=== PATIENT | male | born 1940 | race Caucasian/White ===

== ENCOUNTER 2016-08-22 21:49 | Inpatient (IN) | payer MEDICARE ==
--- NOTE | ~2016-08-22 | CO ---
Unit #: [id number] #: [id number] Patient: CHETAN KWOK [id number] [address] [facility]. [place], [place] [address] [id number] I MR#: [id number] NAME: CHETAN KWOK ROOM: 335 Age: 75 Sex: M Admission Date: 08/22/2016 : 1940 Attending Physician: Marty Caldwell M.D. Primary Care Physician: Edgard Quinn M.D. Consultation Date: 08/23/2016 CONSULTATION REPORT REASON FOR CONSULTATION Severe hyponatremia with an admission sodium of 107. HISTORY OF PRESENT ILLNESS Mr. Kwok is a pleasant 75-year-old white male alcoholic, who presented to the emergency room with several complaints including falls with complain of hitting his head and an abrasion to his left hand. The patient tells me that he has had progressive weakness and several falls at home and tells me that he has hit "rock bottom." Also for several weeks, he has had issues with nausea, vomiting, diarrhea, and poor p.o. intake. All of these issues persuaded him to come to the emergency room. I do see some records from [facility] in 2010. He was treated there for depression and alcohol dependence and was released from that program due to noncompliance with followup. He also has a history of heart disease and is on blood pressure medicine. 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 He is also a smoker. He denies any hematemesis. No bright red blood per rectum or melena. He is having some abdominal pain. No fevers or chills. PAST MEDICAL HISTORY Significant for alcoholism with alcohol dependence, coronary artery disease with angioplasty, hemorrhoids, hypertension, hyperlipidemia, and depression. PAST SURGICAL HISTORY He has had a CABG. He has had hemorrhoid surgery and a tonsillectomy. HOME MEDICATIONS As follows; Protonix 40 mg a day, Altace 1.25 mg daily, Lipitor 10 mg a day, baby aspirin daily, amlodipine 10 mg daily, and trazodone 300 mg at bedtime. ALLERGIES He has quoted allergies to Neosporin. FAMILY HISTORY There is a family history of alcoholism, as he says several uncles have alcohol dependence. No family history of renal issues. SOCIAL HISTORY The patient tells me he drinks 8 to 12 beers a day, sometimes more. He does smoke. He denies any drug use. He says he is retired from the [employer] and is a graduate of [employer] with an MICHELLE. Unit #: [id number] #: [id number] Patient: CHETAN KWOK REVIEW OF SYSTEMS A complete 12-point review of systems was completed with the above findings. In addition, he does suffer from headaches at times. He denies any active dizziness. No nosebleed, sore throat, or earache. No chest pain or palpitations. No cough or hemoptysis. No dysuria or hematuria. No swelling. He does have some bruising from his falls. No gross bleeding issues. He thinks he has lost weight with his recent vomiting and diarrhea. No intolerance to heat or cold. Unless otherwise indicated, the review of systems was negative. PHYSICAL EXAMINATION VITAL SIGNS: The patient is afebrile, pulse 97, respiratory rate 20, blood pressure 110/64. I's and O's are negative by 160. GENERAL: This is a 75-year-old male, who is alert, talkative, disheveled in appearance, in no acute distress. HEENT: Head is atraumatic and normocephalic. Eyes show pink conjunctivae. No nasal drainage or nosebleed. Oropharynx is dry. NECK: Shows no rigidity, no JVD. HEART: Regular rate and rhythm with no murmur or rub appreciated. LUNGS: Clear with no wheezing or rhonchi. Breathing is nonlabored. ABDOMEN: Soft with mild diffuse tenderness to palpation. There are active bowel sounds. No rebound or guarding. EXTREMITIES: No lower extremity cyanosis or pitting edema. SKIN: Dry with some scattered bruising. Left arm and wrist are wrapped. MUSCULOSKELETAL: No CVA tenderness to palpation. LYMPHATIC: There is no neck or cervical lymphadenopathy. PSYCHIATRIC: Mood and affect appear normal. DIAGNOSTIC STUDIES LABORATORY RESULTS: Admission CBC was unremarkable. Admission liver function test showed an elevated AST and ALT at 74 and 89 respectively. Admission sodium 107, potassium 3.8, chloride 77, bicarb 18, glucose 100, BUN 7, creatinine 0.6. Alcohol level was in the toxic range at 181. Follow up a little after midnight showed an improved sodium to 123. Urinalysis did show some urobilinogen and 0 to 2 red blood cells per high-powered field. I did have 2+ blood, but only 0 to 2 red blood cells per high-powered field. Urine sodium was less than 10. Urine osmolality was 72. Follow up sodium level at 03:30 was 123 and at 5:30 was 130. Overall sodium level has corrected from 107 to 130 at this time. ASSESSMENT AND PLAN 1. Hyponatremia. This appears to be secondary to beer potomania as well as a more acute component with nausea, vomiting, and diarrhea. I do not have recent sodium level, but I suspect this may be mostly an acute issue with his recent gastrointestinal illness on top of a chronic illness from his beer potomania. Slow correction is warranted and I have acutely discussed this issue with the nurse and we immediately increased his D5W to 200 mL an hour. We will be checking a sodium level every 4 hours and I will have those called to me. Of note, the patient's IV does not appear to be working well as it beat several times when I was in the room seeing him and he says that it did not work well all night, so I suspect he has not been getting his D5 fluids uninterrupted and the nurse is aware of this issue and says that she will be changing his IV site. In addition a trazodone can cause a SIADH pattern. He did receive this last night, I will be discontinuing this. 2. Hypertension. The patient's blood pressure is on the low side and we will hold his medicines for the time being. 3. Alcoholism. When the patient sober is up, he will need an alcohol Unit #: [id number] #: [id number] Patient: CHETAN KWOK cessation, talk in education. 4. Hepatitis, which is likely alcohol induced. I will be stopping his statin. 5. Depression. We will have to stop his trazodone due to his hyponatremia. I would like to thank Dr. Caldwell for this consult and the opportunity to participate in evaluation and care of Mr. Kwok. Dictated by... Ramez Vizcarra Jr., M.D. NICKIE/antoine TD: 08/23/2016 22:47 JOB #: [id number] CONSULTATION REPORT X Ramez Vizcarra MD X CONSULTATION REPORT
--- NOTE | ~2016-08-22 | HP ---
Unit #: [id number] #: [id number] Patient: CHETAN KWOK [id number] [address] [id number] I MR#: [id number] NAME: CHETAN KWOK ROOM: [facility] Age: 75 Sex: M Admission Date: 08/22/2016 : 1940 Attending Physician: Marty Caldwell M.D. Primary Care Physician: Edgard Quinn M.D. HISTORY AND PHYSICAL HISTORY OF PRESENT ILLNESS The patient is a 75-year-old white male with a history of coronary artery disease, hypertension, hyperlipidemia, major depressive disorder, ETOH and tobacco abuse, multiple falls, and prior rib and hip fractures, who fell on the day of admission. EMS was summoned, and he asked to come to the hospital. He claimed that he was drinking too much but did not want detox. In any case, he apparently had no fractures. He had multiple abrasions which were cleaned. He was found on routine lab work in the ER to have a sodium of 107. He had some abnormal liver functions as would be expected with heavy alcohol use. He did have 2+ blood in his urine but no RBCs suggestive of rhabdomyolysis, and he is admitted for treatment of same. He was given IV fluids overnight, and his sodium went from 107 to 123 to 130. Currently, he has been switched back to D5W because of the rapid rise in his sodium levels. Nephrology has been consulted in the meantime. He has also been placed on DT precautions. Patient has also recently had problems with nausea, vomiting, and diarrhea which is likely secondary to alcohol abuse but this leaves to be seen. In any case, he is admitted for further evaluation and therapy. PAST MEDICAL HISTORY 1. Patient is a poor historian. 2. Coronary artery disease. 3. Hypertension. 4. Headaches. 5. Alcohol abuse. 6. Tobacco abuse. 7. Multiple falls. 8. Hyperlipidemia. PAST SURGICAL HISTORY 1. Coronary artery bypass grafting. 2. Angioplasty. 3. Hemorrhoidectomy. 4. Tonsillectomy. 5. Hip replacement. ALLERGIES NEOMYCIN, BACITRACIN, POLYMYXIN, MEDICATIONS PRIOR TO ADMISSION 1. Protonix 40 mg p.o. daily. 2. Altace 1.25 mg daily. Unit #: [id number] #: [id number] Patient: CHETAN KWOK 3. Lipitor 10 mg daily. 4. Aspirin 81 mg daily. 5. Amlodipine 10 mg daily. 6. Desyrel 300 mg p.o. at bedtime. SOCIAL HISTORY He lives with his elderly mother for whom he cares. He smokes a half a pack of cigarettes daily and drinks eight beers daily on average. No street drug use. FAMILY HISTORY Noncontributory. PHYSICAL EXAMINATION GENERAL: He is awake, alert, and oriented to person and place. He missed the date and month but got the year right. VITAL SIGNS: Afebrile, pulse 91, respirations 18, blood pressure 146/65, and room air O2 saturation 96%. HEENT: Unremarkable otherwise. NECK: Supple without JVD, bruits, adenopathy, or thyromegaly. CHEST: Diffusely decreased breath sounds but clear to auscultation. HEART: Regular rate and rhythm, without any murmurs, rubs, or gallops. ABDOMEN: Soft, nondistended, and nontender, with positive bowel sounds and no hepatosplenomegaly. EXTREMITIES: No clubbing, cyanosis, or edema. GENITOURINARY/RECTAL: Deferred. NEUROLOGIC: Grossly intact. DIAGNOSTIC STUDIES LABORATORY: CBC normal. AST 77, ALT 89, sodium 107, then 123, then 130, original CO2 was 18 and then corrected itself, and calcium was 7.6. Alcohol level was 181. Urinalysis with 2+ blood but otherwise negative and no RBCs seen. Urine sodium less than 10, urine osmo 72. Amylase and lipase normal. IMAGING: CT scan of the head no active disease. IMPRESSION 1. Hyponatremia. 2. Nausea, vomiting, and diarrhea. 3. Alcohol abuse. 4. Alcoholic hepatitis. 5. Probable rhabdomyolysis. 6. Tobacco use. 7. Multiple falls. 8. Coronary artery disease. 9. History of hypertension. 10. History of hyperlipidemia. PLAN Nephrology has been consulted. His IV fluids have been adjusted as mentioned above. All of his home medications are being held currently except for his Protonix. Sodium levels are being followed. He has been started on DT precautions, multivitamins, folic acid, and thiamine. TSH, B12, and folic acid levels. CPK. Lovenox for DVT prophylaxis. Further evaluation pending results of the above. Dictated by Unit #: [id number] #: [id number] Patient: CHETAN KWOK M.D. WRK/am TD: 08/23/2016 16:29 JOB #: [id number] HISTORY AND PHYSICAL X Jay Starr MD HISTORY AND PHYSICAL
--- NOTE | ~2016-08-22 | CT71 ---
[facility] A Service of [facility] RADIOLOGY TEXT RESULTS PATIENT: CHETAN KWOK LOCATION: [facility] 335-01 : 42 UNIT #: [id number] AGE: [address]: Marty Caldwell MD SEX: M ORDER DR: [id number] [facility] [address] [facility] [place], [place] [address] [id number] I MR#: [id number] #: [id number] NAME: CHETAN KWOK : 1940 SEX: M STUDY DATE/TIME: 08/22/2016 20:11 UNIT: A U ROOM: [facility] STUDY DESCRIPTION: CT Head Wo Contrast Attending Physician: Marty Caldwell M.D. Ordering Physician: Edgard Fajardo M.D. Primary Care Physician: Edgard Quinn M.D. MEDICAL IMAGING REPORT This report is preliminary unless electronic signature is present EXAM CT head without contrast, 08/22/2016 at 20:11 HISTORY 75-year-old male, alcohol intoxication, fell and hit head. Unknown loss of consciousness. Headache today. Previous CABG. COMPARISON Noncontrast CT head, 03/13/[address] exam was performed with one or more of the following radiation dose reduction techniques: automatic exposure control, adjustment of mA and/or kV according to patient size, and iterative reconstruction. FINDINGS No acute intracranial hemorrhage, mass lesion, mass effect or midline shift is seen. No evidence of acute or evolving infarct. Ventricular configuration is within normal limits. Questionable focus of fibrous dysplasia in the left frontal calvaria above the left orbit, unchanged from prior examination. No acute or suspicious osseous lesions. Major paranasal sinuses and mastoid air cells appear clear. Mild intracranial carotid artery, vertebral artery and basilar artery calcifications. IMPRESSION No acute intracranial findings. Dictated by... Angie Laird M.D. THIS IS AN ELECTRONICALLY VERIFIED REPORT Angie Laird M.D. at 08/23/2016 10:01 AM NYDIA/schuyler [facility] A Service of [facility] RADIOLOGY TEXT RESULTS PATIENT: CHETAN KWOK LOCATION: [facility] 335-01 : 42 UNIT #: [id number] AGE: [address]: Marty Caldwell MD SEX: M ORDER DR: TD: 08/23/2016 08:59 JOB #: [id number] MEDICAL IMAGING REPORT COPY
[2016-08-22 19:47] LABS: BASOPHIL% 0.2 % (0-2.5); EOSINOPHIL% 0.4 % (0.0-7.0); HEMATOCRIT 43.8 % (38.0-50.0); HEMOGLOBIN 15.3 gm/dL (13.0-16.0); LYMPHOCYTE# 1.2 X10e3 (1.0-3.5); LYMPHOCYTE% 12.8 % (17.0-45.0); MEAN CELL VOLUME 93.7 FL (83-96); MEAN CORPUSCULAR HEMOGLOBIN 32.7 PG (28-34); MEAN CORPUSCULAR HGB CONC 34.9 g/dL (30-36); MEAN PLATELET VOLUME 7.3 FL (6.5-11.5); MONOCYTE# 1.3 X10e3 (0-1.0); MONOCYTE% 14.3 % (3.0-12.0); NEUTROPHIL# 6.7 X10e3 (1.5-7.1); NEUTROPHIL% 72.3 % (40-75); PLATELET COUNT 216 X10e3 (140-420); RED BLOOD COUNT 4.67 X10e (3.90-5.60); RED CELL DISTRIBUTION WIDTH 15.6 % (11.0-15.5); WHITE BLOOD COUNT 9.2 X10e3 (4.0-10.5)
[2016-08-22 19:50] LABS: DIFF IND NO
[2016-08-22 20:07] LABS: ALBUMIN SERUM 3.3 g/dL (3.5-5.0); BILIRUBIN, DIRECT 0.2 mg/dL (0.0-0.2); BILIRUBIN,INDIRECT 0.3 mg/dL (0.0-0.9); BILIRUBIN,TOTAL 0.5 mg/dL (0.2-2.0)
[2016-08-22 20:17] LABS: BLOOD UREA NITROGEN 7 mg/dL (9-23); BUN/CREATININE RATIO 11.66; CALCIUM SERUM 7.6 mg/dL (8.4-10.2); CARBON DIOXIDE 18 mmol/L (22-31); CHLORIDE 77 mmol/L (100-111); CREATININE SERUM 0.6 mg/dL (0.6-1.4); GLOM FILT RATE Estimated ABOVE60 mL/min (>60); GLUCOSE FASTING 100 mg/dL (70-110); POTASSIUM 3.8 mmol/L (3.5-5.1)
[2016-08-22 20:23] LABS: ALCOHOL BLOOD 181 mg/dL (0); SODIUM 107 mmol/L (135-145)
[~2016-08-22 21:49] MED LIST: ALTACE1.25 M1 PO; AMLODIPINE BESY10 MG PO; ASPIRIN81 M1 PO; LIPITOR PO; PANTOPRAZOLE SO40 MG PO; PREVACID PO
[2016-08-22] MEDS ORDERED: DESYREL300 MG PO (22:53)
[2016-08-23 01:24] LABS: BLOOD UREA NITROGEN 8 mg/dL (9-23); BUN/CREATININE RATIO 11.42; CALCIUM SERUM 7.9 mg/dL (8.4-10.2); CARBON DIOXIDE 25 mmol/L (22-31); CHLORIDE 92 mmol/L (100-111); CREATININE SERUM 0.7 mg/dL (0.6-1.4); GLOM FILT RATE Estimated ABOVE60 mL/min (>60); GLUCOSE FASTING 90 mg/dL (70-110); POTASSIUM 4.6 mmol/L (3.5-5.1)
[2016-08-23 01:26] LABS: SODIUM 123 mmol/L (135-145)
[2016-08-23 02:06] LABS: URINE APPEARANCE CLEAR; URINE BILIRUBIN NEG (NEG); URINE BLOOD 2+ (NEG); URINE COLOR YELLOW; URINE GLUCOSE NEG (NEG); URINE KETONE NEG (NEG); URINE LEUKOCYTE ESTERASE NEG (NEG); URINE NITRATE NEG (NEG); URINE PH 6.5 (5-8); URINE PROTEIN NEG (NEG); URINE SPECIFIC GRAVITY 1.004 (1.003-1.035)
[2016-08-23 02:10] LABS: OSMOLALITY,URINE 72 mOsmo/kg (250-900)
[2016-08-23 02:11] LABS: URBCS1 AUWI 0-2 /[HPF] (0-2); URINE BACTERIA AUWI NEG (NEGATIVE); URINE SQUAMOUS EPITHELIAL CELL NONE SEEN /[HPF]; UWBCS1 AUWI 0-2 (0-5)
[2016-08-23 02:19] LABS: CULTURE INDICATED? NO
[2016-08-23 02:22] LABS: SODIUM URINE RANDOM <10 mmol/L
[2016-08-23 04:09] LABS: BLOOD UREA NITROGEN 7 mg/dL (9-23); BUN/CREATININE RATIO 11.66; CALCIUM SERUM 7.8 mg/dL (8.4-10.2); CARBON DIOXIDE 20 mmol/L (22-31); CHLORIDE 95 mmol/L (100-111); CREATININE SERUM 0.6 mg/dL (0.6-1.4); GLOM FILT RATE Estimated ABOVE60 mL/min (>60); GLUCOSE FASTING 93 mg/dL (70-110); POTASSIUM 3.8 mmol/L (3.5-5.1)
[2016-08-23 04:12] LABS: SODIUM 123 mmol/L (135-145)
[2016-08-23 07:30] LABS: BLOOD UREA NITROGEN 7 mg/dL (9-23); BUN/CREATININE RATIO 11.66; CALCIUM SERUM 8.4 mg/dL (8.4-10.2); CARBON DIOXIDE 23 mmol/L (22-31); CHLORIDE 95 mmol/L (100-111); CREATININE SERUM 0.6 mg/dL (0.6-1.4); GLOM FILT RATE Estimated ABOVE60 mL/min (>60); GLUCOSE FASTING 90 mg/dL (70-110); SODIUM 130 mmol/L (135-145)
[2016-08-23 10:02] LABS: AMYLASE 24 U/L (0-46); LIPASE 22 U/L (22-51)
[2016-08-23 14:38] LABS: CPK (CREATINE PHOSPHOKINASE) 56 IU/L (36-174); SODIUM 126 mmol/L (135-145)
[2016-08-23 14:51] LABS: FOLATE (FOLIC ACID) 11.8 ng/mL (>5.8)
== END 2016-08-23 19:34 | disposition left against medical advice (07) | DRG 641 ==
LOC: CED 21:49 → CEDOF 21:50 → C3A PCU 23:29
PROVIDERS: Emergency Medicine; Hospitalist; Internal Medicine; Internal Medicine Nephrology
DX: E87.1 Hypo-osmolality and hyponatremia (principal); M62.82 Rhabdomyolysis; K70.10 Alcoholic hepatitis without ascites; I25.10 Atherosclerotic heart disease of native coronary artery without angina pectoris; Z95.1 Presence of aortocoronary bypass graft; I10 Essential (primary) hypertension; E78.5 Hyperlipidemia, unspecified; F17.210 Nicotine dependence, cigarettes, uncomplicated; Z91.81 History of falling; Z88.8 Allergy status to other drugs, medicaments and biological substances; Z79.82 Long term (current) use of aspirin; F10.20 Alcohol dependence, uncomplicated; F32.9 Major depressive disorder, single episode, unspecified
CPT/HCPCS: 36415; 70450; 80048; 80076; 81003; 82150; 82550; 82607; 82746; 83690; 83935; 84295; 84300; 84443; 85025; 99285; G0480; J1650

== ENCOUNTER 2016-12-26 21:15 | Inpatient (IN) | payer MEDICARE ==
[~2016-12-26] VITALS: Ht 175.3 cm; Wt 60.8 kg
--- NOTE | ~2016-12-26 | DS ---
Unit #: [id number] #: [id number] Patient: CHETAN KWOK [id number] [address] [address] [id number] I MR#: [id number] NAME: CHETAN KWOK ROOM: 565 Age: 76 Sex: M Admission Date: 12/27/2016 : 1940 Discharge Date: 12/30/2016 Attending Physician: Jay Starr M.D. Primary Care Physician: Edgard Quinn M.D. DISCHARGE SUMMARY PRINCIPAL DISCHARGE DIAGNOSES 1. Recurrent hyponatremia, unknown if chronic or recurrent since we have no outpatient data. 2. Recurrent rhabdomyolysis. 3. Alcohol abuse with withdrawal. 4. Coronary artery disease. 5. Status post coronary artery bypass grafting. 6. Migraine headaches. 7. Gastroesophageal reflux disease. 8. Tobacco use. 9. Klebsiella urinary tract infection. 10. Alcoholic hepatitis. 11. Anemia. 12. Hypertension. 13. Chronic insomnia. PROCEDURE None. RAIL SWITCH OPERATOR None. REASON FOR HOSPITALIZATION The patient is a 76-year-old white male alcoholic with history of coronary artery disease, coronary artery bypass grafting, migraine headaches, insomnia, GE reflux disease, tobacco use. He apparently was at home. He states he tripped over his dog, was unable to stand. His mother called . He was found surrounded by bottles of beer, unable to ambulate. He was brought to the emergency room, found to be afebrile, tachycardic, normotensive. Troponin was negative but CKMBs were elevated. Urinalysis showed 4+ bacteria and 2+ blood. Culture was sent. Coags were normal. Sodium was 116. He had mild elevation in his LFTs. Alcohol level was 134. Hemoglobin was 12.4 with an elevated MCV. Urine sodium was less than 20. Urine osmolality 85. Serum osmolality 273. Chest x-ray: No active disease. TFTs were within normal limits, and the patient was admitted. HOSPITAL COURSE The patient was admitted. It appeared that he probably had rhabdomyolysis as he had last admission. CPK was sent and was over 2000. He was started on sodium bicarbonate, IV fluids. Magnesium, electrolytes, muscle enzymes were followed. He was placed on alcohol withdrawal protocol, required an occasional dose of Ativan. His sodium yesterday was low normal at 135. This morning, it is 130. His potassium is a little low. His CPK is down Unit #: [id number] #: [id number] Patient: CHETAN KWOK to 232. He is beginning occupational and physical therapy here, recommends home therapy. He is being discharged home. Again, he was advised not to drink alcohol. He is on a regular diet. He is to follow up with Dr. Quinn in one week. [facility] is to come out for home health for physical therapy. CURRENT MEDICATIONS 1. Topamax 100 mg daily. 2. Desyrel 100 mg at bedtime. 3. Multivitamins one daily. 4. Amlodipine 10 mg daily. 5. Singulair 10 mg daily. 6. Protonix 40 mg b.i.d. 7. Prescription for Bactrim double strength one p.o. b.i.d. for Klebsiella urinary tract infection #10 with no refills. When he follows up with Dr. Quinn, he will need to have a repeat BMP as well as a urinalysis. Dictated by... Jay Starr M.D. CHARLOTTE/keith TD: 01/02/2017 09:47 JOB #: [id number] DISCHARGE SUMMARY Page 1 of 1 X Jay Starr MD X DISCHARGE SUMMARY
--- NOTE | ~2016-12-26 | CR133 ---
[facility] A Service of [facility] RADIOLOGY TEXT RESULTS PATIENT: CHETAN KWOK [facility] 565-01 : 42 UNIT #: [id number] AGE: [address]: Jay Starr MD SEX: M ORDER DR: [id number] [facility] [address] [facility]. [place], [place] [address] [id number] I MR#: [id number] Acc #: [id number] NAME: CHETAN KWOK : 1940 SEX: M STUDY DATE/TIME: 12/29/2016 3:02 UNIT: [facility] ROOM: [facility] STUDY DESCRIPTION: CR Forearm 2 View Rt Attending Physician: Jay Starr M.D. Ordering Physician: Jay Starr M.D. Primary Care Physician: Edgard Quinn M.D. MEDICAL IMAGING REPORT This report is preliminary unless electronic signature is present EXAM Right forearm. INDICATION Right forearm pain after a fall today. FINDINGS AP and lateral views of the forearm show no evidence of fracture or destructive bone lesion. No periosteal elevation is seen. No radiodense foreign bodies are noted. Adjacent soft tissue structures are normal. IMPRESSION Normal forearm. Dictated by... Michael Rosenthal M.D. THIS IS AN ELECTRONICALLY VERIFIED REPORT Michael Rosenthal M.D. at 12/29/2016 1:31 PM SAE/eder TD: 12/29/2016 09:11 JOB #: [id number] MEDICAL IMAGING REPORT Page 1 of 1 COPY
--- NOTE | ~2016-12-26 | CR72 ---
[facility] A Service of [facility] & [facility] RADIOLOGY TEXT RESULTS PATIENT: CHETAN KWOK LOCATION: [facility] 578-01 : 42 UNIT #: [id number] AGE: [address]: Jay Starr MD SEX: M ORDER DR: [id number] [facility] [address] [facility]. [place], [place] [address] [id number] E MR#: [id number] Acc #: [id number] NAME: CHETAN KWOK : 1940 SEX: M STUDY DATE/TIME: 12/27/2016 0:42 UNIT: [facility] ROOM: STUDY DESCRIPTION: CR Chest Single View Portable Attending Physician: Joni Olivarez Ordering Physician: Ed Bautista Gonzalez M.D. Primary Care Physician: Edgard Quinn M.D. MEDICAL IMAGING REPORT This report is preliminary unless electronic signature is present EXAM Portable chest INDICATIONS Shortness of air and cough tonight. No comparison. FINDINGS A portable view of the chest was obtained. The heart size and vascularity are normal and the lungs are clear except for a calcified right lower lobe granuloma and the lungs are normal. IMPRESSION No active disease. Dictated by... Michael Rosenthal M.D. THIS IS AN ELECTRONICALLY VERIFIED REPORT Michael Rosenthal M.D. at 12/27/2016 5:48 AM Jane TD: 12/27/2016 03:47 JOB #: [id number] MEDICAL IMAGING REPORT Page 1 of 1 COPY
--- NOTE | ~2016-12-26 | HP ---
Unit #: [id number] #: [id number] Patient: CHETAN KWOK [id number] [address] [id number] I MR#: [id number] NAME: CHETAN KWOK ROOM: 578 Age: 76 Sex: M Admission Date: 12/27/2016 : 1940 Attending Physician: Jay Starr M.D. Primary Care Physician: Edgard Quinn M.D. HISTORY AND PHYSICAL HISTORY OF PRESENT ILLNESS This is a 76-year-old white male, alcoholic, history of coronary artery disease, coronary artery bypass grafting, GE reflux disease, hypertension, hyperlipidemia, tobacco use and noncompliance. Apparently he tripped over his dog yesterday and was unable to stand up. His elderly mother, with whom he lives, called . He was found surrounded by beer bottles. Was brought to the emergency room, found to have recurrent hyponatremia and, what appears to be, rhabdomyolysis, although this was not addressed by the ER physician, and he is admitted for further evaluation. The patient has no complaints. He wants to go home. I believe he left AMA last admission, but there is no documentation I can see in the chart about that. In any case, he is admitted for hyponatremia, weakness, multiple falls and alcohol abuse. ALLERGIES Neomycin in the form of Neosporin. MEDS PRIOR TO ADMISSION 1. Protonix 40 mg daily. 2. Altace 1.25 mg daily. 3. Lipitor 10 mg daily. 4. Aspirin 81 mg daily. 5. Amlodipine, dose unknown. 6. Desyrel 300 mg q.h.s. PAST MEDICAL HISTORY 1. Coronary artery disease. 2. Hypertension. 3. Cluster headaches. 4. Alcohol abuse. 5. Tobacco abuse. 6. Multiple falls. 7. Hyperlipidemia. 8. Hyponatremia. 9. Rhabdomyolysis. PAST SURGICAL HISTORY 1. Coronary artery bypass grafting. 2. Angioplasty. 3. Hemorrhoidectomy. 4. Tonsillectomy. 5. Hip replacement. SOCIAL HISTORY Unit #: [id number] #: [id number] Patient: CHETAN KWOK Lives with his elderly mother. Smokes 1/2 pack of cigarettes daily. Drinks 8-[address] use. FAMILY HISTORY Family history is noncontributory. PHYSICAL EXAMINATION GENERAL: He is awake, alert, oriented x3, in no acute distress. ADMISSION VITALS: Afebrile. Pulse 106, respirations 20, blood pressure 123/73, O2 sat 96% on room air. HEENT: Unremarkable. NECK: Neck was supple without JVD, bruits, adenopathy or thyromegaly. CHEST: Clear to auscultation. CARDIOVASCULAR: Heart has a regular rate and rhythm without any murmurs, rubs or gallops. ABDOMEN: Abdomen was soft, nondistended, nontender with positive bowel sounds and no hepatosplenomegaly. EXTREMITIES: Extremities showed no clubbing, cyanosis or edema. /RECTAL: Deferred. NEUROLOGIC: Exam is grossly intact. DIAGNOSTIC STUDIES LAB VALUES: CK-MB was elevated x2. No total was performed. Troponin was negative x2. Urinalysis - Trace leukocytes, 2+ blood, 0-2 RBCs, 4+ bacteria. PT and PTT within normal limits. Sodium was 116; this morning it is 128. Calcium is 7.7. Albumin 3.4. AST 68, alkaline phosphatase 103. Alcohol level 134. CBC is normal except for hemoglobin of 12.4 with an MCV of 101.9. Urine sodium is less than 20. Urine osmolality 85. Serum osmolality 273. TSH and free T4 are normal. IMAGING: Chest x-ray - No active disease. CARDIOVASCULAR: EKG shows sinus rhythm with PACs, left axis deviation, incomplete right bundle branch block, nonspecific ST-T abnormality in the lateral leads. IMPRESSION 1. Hyponatremia, recurrent, possibly chronic, although we do not have any records in between his last hospitalization and this one. 2. Probable rhabdomyolysis. 3. Alcohol abuse. 4. Alcoholic hepatitis. 5. Hyperlipidemia. 6. Coronary artery disease. 7. Hypertension. 8. Megaloblastic anemia. PLAN Check total CPK level. Will need to hydrate if it is elevated. Will probably use some bicarb and watch his sodium closer, although it has already bumped up to 128 this morning. Will resume his Protonix and Desyrel. Will have physical therapy see if the patient can ambulate. He is on Lovenox for DVT prophylaxis. Further evaluation pending results of the above. Unit #: [id number] #: [id number] Patient: CHETAN KWOK Dictated by Rebeca Castaneda/sj TD: 12/27/2016 09:42 JOB #: [id number] HISTORY AND PHYSICAL Page 1 of 1 X Jay Starr MD X HISTORY AND PHYSICAL
--- NOTE | ~2016-12-26 | EKG ---
PATIENT: CHETAN KWOK UNIT #: [id number] Ventricular Rate: 100 BPM Atrial Rate: 100 BPM P-R Interval: 192 ms QRS Duration: 96 ms Q-T Interval: 374 ms QTC Calculation(Bezet): 482 ms P Center Sandwich: 72 degrees Calculated R Center Sandwich: -63 degrees Calculated T Center Sandwich: 83 degrees Diagnosis Line: Sinus rhythm with Premature atrial complexes Diagnosis Line: Left axis deviation Diagnosis Line: Incomplete right bundle branch block Diagnosis Line: Cannot rule out Anterior infarct , age Diagnosis Line: undetermined Diagnosis Line: ST and T wave abnormality, consider lateral ischemia Diagnosis Line: Abnormal ECG Diagnosis Line: When compared with ECG of 27-DEC-2016 00:37, Diagnosis Line: (unconfirmed) Diagnosis Line: No significant change was found Diagnosis Line: Confirmed by NENITA AN MDTRIHEALTHNIRANJAN ([id number]) on Diagnosis Line: 12/28/2016 10:33:37 AM INTERPRETING MD: JUVE TAYLOR
[~2016-12-26 21:15] MED LIST changes: +DESYREL300 MG PO
[2016-12-27 00:59] LABS: POC - CKMB 17.7 ng/mL (0.0-7.9); POC - TROPONIN <0.05 ng/mL (<=0.05)
[2016-12-27 01:02] LABS: URINE SOURCE CLEAN CATCH
[2016-12-27 01:25] LABS: CULTURE INDICATED? YES; URBCS1 AUWI 0-2 /[HPF] (0-2); URINE APPEARANCE CLEAR; URINE BACTERIA AUWI 4+ (NEGATIVE); URINE BILIRUBIN NEG (NEG); URINE BLOOD 2+ (NEG); URINE COLOR YELLOW; URINE GLUCOSE NEG (NEG); URINE KETONE NEG (NEG); URINE LEUKOCYTE ESTERASE TRACE (NEG); URINE NITRATE NEG (NEG); URINE PROTEIN NEG (NEG); URINE SPECIFIC GRAVITY 1.004 (1.003-1.035); URINE SQUAMOUS EPITHELIAL CELL NONE SEEN /[HPF]
[2016-12-27 01:49] LABS: INR 0.9; PARTIAL THROMBOPLASTIN TIME 28.5 SECONDS (23.5-31.3); PROTHROMBIN TIME (PATIENT) 9.8 SECONDS (10.0-11.7)
[2016-12-27 02:14] LABS: ALBUMIN SERUM 3.4 g/dL (3.5-5.0); BILIRUBIN, DIRECT 0.2 mg/dL (0.0-0.2); BILIRUBIN,INDIRECT 0.5 mg/dL (0.0-0.9); BILIRUBIN,TOTAL 0.7 mg/dL (0.2-2.0); CALCIUM SERUM 7.7 mg/dL (8.4-10.2); CREATININE SERUM 0.5 mg/dL (0.6-1.4); GLOM FILT RATE Estimated 106.8 mL/min (>60); POTASSIUM 3.9 mmol/L (3.5-5.1); PROTEIN TOTAL SERUM 6.1 g/dL (6.0-8.3)
[2016-12-27 02:25] LABS: POC - CKMB 10.8 ng/mL (0.0-7.9); POC - TROPONIN <0.05 ng/mL (<=0.05)
[2016-12-27 02:34] LABS: BASOPHIL% 0.1 % (0-2.5); DIFF IND NO; HEMATOCRIT 36.7 % (38.0-50.0); HEMOGLOBIN 12.4 gm/dL (13.0-16.0); LYMPHOCYTE# 0.8 X10e3 (1.0-3.5); LYMPHOCYTE% 7.6 % (17.0-45.0); MEAN CELL VOLUME 101.9 FL (83-96); MEAN CORPUSCULAR HEMOGLOBIN 34.5 PG (28-34); MEAN CORPUSCULAR HGB CONC 33.9 g/dL (30-36); MEAN PLATELET VOLUME 7.8 FL (6.5-11.5); MONOCYTE# 0.7 X10e3 (0-1.0); MONOCYTE% 6.7 % (3.0-12.0); NEUTROPHIL% 85.6 % (40-75); PLATELET COUNT 219 X10e3 (140-420); RED CELL DISTRIBUTION WIDTH 17.4 % (11.0-15.5); WHITE BLOOD COUNT 10.5 X10e3 (4.0-10.5)
[2016-12-27 04:25] LABS: SODIUM URINE RANDOM <10 mmol/L
[2016-12-27 04:30] LABS: OSMOLALITY,URINE 85 mOsmo/kg (250-900)
[2016-12-27 05:51] LABS: ALBUMIN SERUM 3.5 g/dL (3.5-5.0); BILIRUBIN,TOTAL 0.6 mg/dL (0.2-2.0); BUN/CREATININE RATIO 8.33; CALCIUM SERUM 8.2 mg/dL (8.4-10.2); CREATININE SERUM 0.6 mg/dL (0.6-1.4); GLOM FILT RATE Estimated 99.1 mL/min (>60); POTASSIUM 4.1 mmol/L (3.5-5.1); PROTEIN TOTAL SERUM 5.9 g/dL (6.0-8.3)
[2016-12-27] MEDS ORDERED: TOPAMAX PO (11:58)
[2016-12-27] MEDS ORDERED: SINGULAIR PO (11:59)
[2016-12-28 05:34] LABS: HEMATOCRIT 34.5 % (38.0-50.0); HEMOGLOBIN 11.4 gm/dL (13.0-16.0); MEAN PLATELET VOLUME 8.3 FL (6.5-11.5); RED BLOOD COUNT 3.35 X10e (3.90-5.60); RED CELL DISTRIBUTION WIDTH 17.4 % (11.0-15.5); WHITE BLOOD COUNT 7.1 X10e3 (4.0-10.5)
[2016-12-28 06:04] LABS: CALCIUM SERUM 8.3 mg/dL (8.4-10.2); CREATININE SERUM 0.5 mg/dL (0.6-1.4); GLOM FILT RATE Estimated 106.8 mL/min (>60); POTASSIUM 3.1 mmol/L (3.5-5.1)
[2016-12-28 08:42] LABS: MAGNESIUM 2.2 mg/dL (1.6-3.0)
[2016-12-29 07:23] LABS: CALCIUM SERUM 8.8 mg/dL (8.4-10.2); CREATININE SERUM 0.5 mg/dL (0.6-1.4); GLOM FILT RATE Estimated 106.8 mL/min (>60); POTASSIUM 3.2 mmol/L (3.5-5.1)
[2016-12-29 10:28] LABS: HEMATOCRIT 34.1 % (38.0-50.0); HEMOGLOBIN 11.1 gm/dL (13.0-16.0); MEAN CELL VOLUME 103.3 FL (83-96); MEAN CORPUSCULAR HEMOGLOBIN 33.7 PG (28-34); MEAN CORPUSCULAR HGB CONC 32.7 g/dL (30-36); MEAN PLATELET VOLUME 7.5 FL (6.5-11.5); RED BLOOD COUNT 3.3 X10e (3.90-5.60); RED CELL DISTRIBUTION WIDTH 17.4 % (11.0-15.5); WHITE BLOOD COUNT 8.1 X10e3 (4.0-10.5)
[2016-12-30 05:53] LABS: BUN/CREATININE RATIO 12.5; CALCIUM SERUM 8.3 mg/dL (8.4-10.2); CREATININE SERUM 0.4 mg/dL (0.6-1.4); GLOM FILT RATE Estimated 117.1 mL/min (>60); POTASSIUM 3.2 mmol/L (3.5-5.1)
[2016-12-30] MEDS ORDERED: BACTRIM DS TAB1 EACH PO (07:49)
[2016-12-30] MEDS ORDERED: ONE DAILY MULT1 EAC2 PO (07:51)
== END 2016-12-30 09:36 | disposition home health service (06) | DRG 897 ==
LOC: CED 21:15 → CEDOF 12-27 02:45 → CED 12-27 03:06 → C5C 12-27 03:06 → CEDOF 12-27 04:15 → C5C 12-28 23:40
PROVIDERS: Emergency Medicine; Internal Medicine
DX: F10.230 Alcohol dependence with withdrawal, uncomplicated (principal); M62.82 Rhabdomyolysis; N39.0 Urinary tract infection, site not specified; E87.1 Hypo-osmolality and hyponatremia; I25.10 Atherosclerotic heart disease of native coronary artery without angina pectoris; Z95.1 Presence of aortocoronary bypass graft; G43.909 Migraine, unspecified, not intractable, without status migrainosus; K21.9 Gastro-esophageal reflux disease without esophagitis; B96.1 Klebsiella pneumoniae [K. pneumoniae] as the cause of diseases classified elsewhere; K70.10 Alcoholic hepatitis without ascites; D53.1 Other megaloblastic anemias, not elsewhere classified; I10 Essential (primary) hypertension; F51.04 Psychophysiologic insomnia; Z71.41 Alcohol abuse counseling and surveillance of alcoholic; F17.210 Nicotine dependence, cigarettes, uncomplicated
CPT/HCPCS: 36415; 71010; 73090; 80048; 80053; 80076; 81003; 82550; 82553; 83735; 83930; 83935; 84300; 84439; 84443; 84484; 85025; 85027; 85610; 85730; 87086; 87186; 93005; 96361; 96374; 97110; 97116; 97161; 97166; 97530; 99285; G0480; G8978-GP; G8979-GP; G8987-GO; G8988-GO; G8989-GO; J1650; J2405; J3411; J7042